=== PATIENT | female | born 1975 | race Caucasian/White ===

== ENCOUNTER → 2016-09-28 | Outpatient (CLI) | payer OTHER ==
[~2016-09-28] VITALS: Ht 165.1 cm; Wt 71.4 kg
[~2016-09-28] MED LIST: CHANTIX START M1 TAB PO; COZAAR 50MG50 MG/TAB PO; COZAAR100 MG PO; FASTIN30 MG PO; KLONOPIN 0.5MG0.5 MG PO; MAXALT10 MG; MOTRIN 600600 MG/TAB PO; NO HOME MEDICATIONS; NORCO 325 MG-7.1 TAB PO; PHENERGAN 25 TA25 MG PO; PHENTERMINE15 MG; PHENTERMINE15 MG PO; PREDNISONE20 MG PO; PRILOSEC 20MG20 MG PO; PROTONIX 40MG T40 MG PO; PROTONIX20 MG PO; REGLAN 10MG10 MG/TAB PO; SEPTRA DS 8001 TAB PO; VITAMIN D3 PO; ZOFRAN 4MG T4 MG/TAB PO; ZOFRAN ODT8 MG SL; ZOFRAN8 MG PO; ZOLOFT 50MG50 MG PO; [UNRECOGNIZED DRUG - OTHER] TOP; [UNRECOGNIZED DRUG - OTHER] TOP
[2016-09-28 15:29] VITALS: BP 114/60; PULSE 68
[2016-09-28 15:59] VITALS: BP 114/60; PULSE 68
== END ==
LOC: LIGHT 11:31
DX: I10 Essential (primary) hypertension (principal); K21.9 Gastro-esophageal reflux disease without esophagitis; E66.3 Overweight; Z68.26 Body mass index [BMI] 26.0-26.9, adult

== ENCOUNTER → 2016-11-16 | Outpatient (CLI) | payer OTHER ==
[~2016-11-16] VITALS: Ht 165.1 cm; Wt 68.7 kg
[2016-11-16 15:27] VITALS: BP 124/67; PULSE 77
== END ==
LOC: LIGHT 14:18
DX: I10 Essential (primary) hypertension (principal); E55.9 Vitamin D deficiency, unspecified; K21.9 Gastro-esophageal reflux disease without esophagitis; E66.3 Overweight; Z68.25 Body mass index [BMI] 25.0-25.9, adult

== ENCOUNTER 2016-12-09 18:49 | Emergency (ER) | payer SELFPAY ==
[~2016-12-09] VITALS: Ht 162.6 cm; Wt 65.9 kg
[2016-12-09 18:54] VITALS: BP 130/77; TEMP 99.2
[2016-12-09 20:34] LABS: INFLUENZA B NEGATIVE
[2016-12-09 21:06] VITALS: PULSE 99
== END 2016-12-09 21:07 | disposition home or self-care (01) ==
LOC: COL.ER 18:49
PROVIDERS: Nurse Practitioner
DX: J06.9 Acute upper respiratory infection, unspecified (principal); F17.210 Nicotine dependence, cigarettes, uncomplicated

== ENCOUNTER → 2017-05-17 | Outpatient (CLI) | payer SELFPAY ==
[~2017-05-17] VITALS: Ht 162.6 cm; Wt 67.6 kg
[2017-05-17 11:59] VITALS: BP 124/80; PULSE 76
== END ==
LOC: LIGHT 02-01 14:40
DX: I10 Essential (primary) hypertension (principal); K21.9 Gastro-esophageal reflux disease without esophagitis; E66.3 Overweight; Z68.24 Body mass index [BMI] 24.0-24.9, adult; Z71.3 Dietary counseling and surveillance

== ENCOUNTER 2017-08-12 20:05 | Emergency (ER) | payer SELFPAY ==
[~2017-08-12] VITALS: Ht 162.6 cm; Wt 68.2 kg
[2017-08-12 20:14] VITALS: BP 130/72; TEMP 98.5
[2017-08-12 20:54] LABS: BASO % 0.2 % (0.0-2.0); EOS # 0.1 (0.0-0.7); EOS % 1.5 % (0-4.0); GRAN # 6.7 (1.4-6.5); GRAN % 82.4 % (42.2-75.2); HEMATOCRIT 37.2 % (37.0-47.0); HEMOGLOBIN 11.5 g/dl (12.5-16.0); LYMPH # 0.8 (1.2-3.4); LYMPH % 9.5 % (20.0-51.0); MEAN CELL VOLUME 79 fl (80.0-100.0); MEAN CORPUSCULAR HEMOGLOBIN 24 pg (27.0-31.0); MEAN CORPUSCULAR HGB CONC 31 g/dl (33.0-37.0); MEAN PLATELET VOLUME 8.7 fl (7.4-10.4); MONO # 0.5 (0.1-0.6); PLATELET COUNT 261 K/mm3 (130-400); RED BLOOD COUNT 4.74 M/mm3 (4.10-5.30); WHITE BLOOD COUNT 8.1 K/mm3 (4.8-10.8)
[2017-08-12 21:05] LABS: ADJUSTED CALCIUM 8.9 mg/dL (8.4-10.2); ALBUMIN 3.9 gm/dL (3.5-5.0); BILIRUBIN,TOTAL 0.7 mg/dL (0.0-1.0); CALCIUM 8.8 mg/dL (8.4-10.2); CREATININE, serum 0.59 mg/dL (0.52-1.25); POTASSIUM 3.6 mmol/L (3.4-5.0); TOTAL PROTEIN 6.9 gm/dL (6.4-8.2)
[2017-08-12 21:45] LABS: COLLECTION METHOD CLEAN CATCH
[2017-08-12 21:51] LABS: MUCOUS Present /lpf; PH 5 (5-8); URINE APPEARANCE Clear; URINE BACTERIA None Seen /hpf; URINE BILIRUBIN Negative (NEGATIVE); URINE BLOOD Negative (NEGATIVE); URINE COLOR Amber; URINE GLUCOSE Negative (NEGATIVE); URINE KETONE Trace (NEGATIVE); URINE LEUKOCYTE ESTERASE Negative (NEGATIVE); URINE PROTEIN(semi-quant) Negative (NEGATIVE); URINE RBC 0-2 /hpf; URINE WBC 0-2 /hpf
[2017-08-12] MEDS ORDERED: ZOFRAN ODT4 MG PO (21:58)
[2017-08-12 22:11] VITALS: PULSE 82
== END 2017-08-12 22:11 | disposition home or self-care (01) ==
LOC: COL.ER 20:05
PROVIDERS: Emergency Medicine
DX: K52.9 Noninfective gastroenteritis and colitis, unspecified (principal); E86.0 Dehydration; I10 Essential (primary) hypertension; J45.909 Unspecified asthma, uncomplicated; Z87.19 Personal history of other diseases of the digestive system; Z87.891 Personal history of nicotine dependence; Z90.49 Acquired absence of other specified parts of digestive tract; Z90.89 Acquired absence of other organs; Z98.84 Bariatric surgery status; Z98.890 Other specified postprocedural states
CPT/HCPCS: J2765; J3010; J7030